=== PATIENT | female | born 1985 | race Two or more races ===

== ENCOUNTER 2019-12-13 01:27 | Inpatient (IN) | payer OTHER ==
[~2019-12-13] VITALS: Ht 157.5 cm; Wt 66.2 kg
[2019-12-13] MEDS ORDERED: PRENATAL + DHA1 EAC1 PO (02:40)
== END 2019-12-15 09:35 | disposition home or self-care (01) | DRG 833 ==
LOC: LDR 01:27
PROVIDERS: ADMIT Obstetrics & Gynecology Maternal & Fetal Medicine; ATTEND Obstetrics & Gynecology Maternal & Fetal Medicine
PROC: BY4FZZZ Ultrasonography of Third Trimester, Single Fetus (ICD-10-PCS; principal; 2019-12-13)
PROC: 4A1HXCZ Monitoring of Products of Conception, Cardiac Rate, External Approach (ICD-10-PCS; 2019-12-13)
DX: O60.03 Preterm labor without delivery, third trimester (principal); O26.843 Uterine size-date discrepancy, third trimester; O34.13 Maternal care for benign tumor of corpus uteri, third trimester; Z3A.33 33 weeks gestation of pregnancy

== ENCOUNTER 2019-12-18 10:25 | Outpatient (CLI) | payer OTHER ==
[~2019-12-18 10:25] MED LIST: PRENATAL + DHA1 EAC1 PO
== END 2019-12-18 10:53 | disposition home or self-care (01) ==
LOC: NST 10:25
PROVIDERS: ATTEND Obstetrics & Gynecology
DX: Z34.83 Encounter for supervision of other normal pregnancy, third trimester (principal)

== ENCOUNTER 2019-12-25 13:51 | Outpatient (CLI) | payer OTHER | END 2019-12-25 14:55 | disposition home or self-care (01) | LOC: NST 13:51 | PROVIDERS: ATTEND Obstetrics & Gynecology Maternal & Fetal Medicine | DX: Z34.83 Encounter for supervision of other normal pregnancy, third trimester (principal) ==

== ENCOUNTER 2019-12-31 13:46 | Outpatient (CLI) | payer OTHER | END 2019-12-31 14:48 | disposition home or self-care (01) | LOC: NST 13:46 | PROVIDERS: ATTEND Obstetrics & Gynecology | DX: Z34.83 Encounter for supervision of other normal pregnancy, third trimester (principal) ==

== ENCOUNTER 2019-12-31 16:08 | Inpatient (IN) | payer OTHER ==
[~2019-12-31] VITALS: Ht 157.5 cm; Wt 2.7 kg
[2020-01-13] MEDS ORDERED: NIFE60TA3 PO (22:37)
[2020-01-17] MEDS ORDERED: OXYC1TAB9 PO (07:41)
[2020-01-17] MEDS ORDERED: KETO10TA2 PO (07:41)
[2020-01-17] MEDS ORDERED: LABETALOL HCL100 MG PO (07:41)
[2020-01-17] MEDS ORDERED: FUROSEMIDE20 MG PO (07:42)
== END 2020-01-17 12:17 | disposition home or self-care (01) | DRG 788 ==
LOC: LDR 01-13 22:18 → SURG-SUITE 01-13 22:18
PROVIDERS: ADMIT Obstetrics & Gynecology; ATTEND Obstetrics & Gynecology
PROC: 10D00Z1 Extraction of Products of Conception, Low, Open Approach (ICD-10-PCS; principal; 2020-01-13)
PROC: 4A1HXCZ Monitoring of Products of Conception, Cardiac Rate, External Approach (ICD-10-PCS; 2020-01-13)
DX: O14.14 Severe pre-eclampsia complicating childbirth (principal); Z20.828 Contact with and (suspected) exposure to other viral communicable diseases; Z3A.37 37 weeks gestation of pregnancy; Z37.0 Single live birth